=== PATIENT | male | born 2000 | race Caucasian/White ===

== ENCOUNTER 2023-06-15 01:19 | Emergency (ER) | payer SELFPAY ==
[~2023-06-15] VITALS: Ht 175.3 cm; Wt 61.2 kg
[2023-06-15 01:29] VITALS: BP 115/70; PULSE 66; RESP 16; TEMP 97.8; O2SAT 100
[2023-06-15] MEDS ORDERED: NACL 0.9% 2,000 ML IV ONE (01:35)
[2023-06-15 02:18] LABS: BASOPHILS % (AUTO) 0.1 % (0.0-2.0); EOSINOPHILS # (AUTO) 0.1 K/uL (0-0.4); EOSINOPHILS % (AUTO) 0.7 % (0.0-4.0); LYMPHOCYTES # (AUTO) 1.8 K/uL (2.0-11.5); LYMPHOCYTES % (AUTO) 12.5 % (20.5-51.1); MEAN CORPUSCULAR HEMOGLOBIN 29 pg (27-31); MEAN CORPUSCULAR HGB CONC 33 g/dL (33-37); MEAN CORPUSCULAR VOLUME 87.7 fL (80-94); MONOCYTES # (AUTO) 0.7 K/uL (0.8-1.0); MONOCYTES % (AUTO) 5.3 % (1.7-9.3); NEUTROPHILS # (AUTO) 11.6 K/uL (1.8-7.7); NEUTROPHILS % (AUTO) 81.4 % (42.2-75.2); PLATELET COUNT (AUTO) 219 K/uL (140-450); RED BLOOD CELL COUNT(AUTO) 5.47 MIL/uL (4.20-6.10); RED CELL DISTRIBUTION WIDTH 12.3 % (11.6-13.7); WHITE BLOOD COUNT (AUTO) 14.2 K/uL (4.5-11.0)
[2023-06-15 02:24] LABS: ALBUMIN 4.7 g/dL (3.4-5.0); ANION GAP 14.4 (8-16); CALCIUM 8.9 mg/dL (8.5-10.1); CARBON DIOXIDE 25.7 mmol/L (21-32); CREATININE 0.9 mg/dL (0.6-1.3); POTASSIUM 3.1 mmol/L (3.5-5.1); TOTAL BILIRUBIN 0.4 mg/dL (0.0-1.0); TOTAL PROTEIN, SERUM 7.8 g/dL (6.4-8.2)
[2023-06-15] MEDS ORDERED: POTASSIUM CHLORIDE 10 MEQ TABER PO ONE (03:10)
[2023-06-15 04:23] LABS: AMPHETAMINE, URINE NEGATIVE ng/ml (NEG <=1000); BARBITURATE, URINE NEGATIVE ng/ml (NEG <=200); BENZODIAZEPINE, URINE NEGATIVE ng/mL (NEG <=200); CANNABINOID, URINE NEGATIVE ng/mL (NEG <=50); COCAINE, URINE NEGATIVE ng/mL (NEG <=300); OPIATE, URINE NEGATIVE ng/mL (NEG <=2000); PHENCYCLIDINE SCREEN,URINE NEGATIVE ng/mL (NEG <=25)
[2023-06-15 05:00] VITALS: BP 115/70; PULSE 66; RESP 16; TEMP 97.8; O2SAT 100
== END 2023-06-15 05:00 | disposition home or self-care (01) ==
LOC: MED 01:19
DX: F10.129 Alcohol abuse with intoxication, unspecified (principal); E87.6 Hypokalemia; D72.829 Elevated white blood cell count, unspecified; E86.0 Dehydration; Y90.6 Blood alcohol level of 120-199 mg/100 ml
CPT/HCPCS: 36415; 80053; 80305; 85025; 96360; 96361; 99283; G0482; J7030